=== PATIENT | female | born 1980 ===

== ENCOUNTER 2018-04-26 10:59 | Day surgery (SDC) | payer OTHER ==
[2018-04-26 11:39] VITALS: BMI 31.8
--- NOTE | 2018-04-26 11:42 | PDOC.LDHP ---
Labor and Delivery H&P Chief complaint: contractions HPI: 37 y/o G1 at 39w1d here for contractions. Denies VB, LOF, or decreased FM. ROS neg for HEENT, CV, pulm, GI, , neuro, psych, skin, musculoskeletal, or constitutional symptoms other than mentioned above. OB History Details: First Current complications: none Past Medical History: None Current medications: pre- vitamins Previous surgical history: none Allergies/Adverse Reactions: Allergies Allergy/AdvReac Type Severity Reaction Status Date / Time No Known Allergies Allergy Unverified 04/26/18 11:25 Social history: none - Physical Exam Vital signs reviewed and normal: yes General: NAD, resting Lungs: nonlabored breathing Abdomen: gravid Extremeties: no edema FHT: category 1 (120s, mod variability, + accels, no decels) [place] contractions every: 6-8 mins
[2018-04-26 11:46] VITALS: BP 112/62; TEMP 98.1
--- NOTE | 2018-04-26 14:04 | PDOC.LDHP ---
Labor and Delivery H&P Chief complaint: contractions HPI: 37 yo 39.1 wk by LMP/20.6 wk Sono, Hep B positive. Presents with occasional contractions that started last night. came to hospital for triage. No contractions since arriving at hospital. Denies bleeding, discharge, LOF, or decreased movement. History obtained with use of business services sales representative. Due date: 05/02/18 (39.1) Dating criteria: last menstrual period (c/w 20.6) Grav: 1 Para: 0 Current complications: other (Hep B positive, gestation throbocytopenia) Abnormal US findings: No (posterior placenta ) Past Medical History: Hep B. Current medications: pre-leda vitamins Previous surgical history: none Social history: none - Physical Exam Vital signs reviewed and normal: yes General: NAD, resting Heart: RRR Lungs: nonlabored breathing Abdomen: NTTP Extremeties: no edema FHT: category 1 (baseline 140, moderate variability, accel present, no decell) - Vaginal Exam cm dilated: 3 Effacement: 50% Station: -1 - OB Labs Blood type: A RH: positive Antibody Screen: negative HIV: negative RPR: negative HEPSAg: positive (positive viral load) GBS: negative Urine drug screen: negative Rubella: immune - Assessment False labor. - Plan -: No change in 2 hours. D/C home with labor precautions and instructed to f/u with PCP in 1-2 days for routine care. <Christos Horton - Last Filed: 04/26/18 14:02> <Carmen Alcala - Last Filed: 04/26/18 16:50> Allergies/Adverse Reactions: Allergies Allergy/AdvReac Type Severity Reaction Status Date / Time No Known Allergies Allergy Unverified 04/26/18 11:25 Attending Addendum - Attending Addendum Date/Time: 04/26/18 1642 I personally evaluated the patient and discussed the management with Dr. Horton I agree with the History, Examination, Assessment and Plan documented above with any addition or exceptions noted below- 37 yo female at 39.1 weeks presented c/o ctx this morning. Only irregularly felt. (+) FM. Monitored x2 hours in L&D. No cervical change. Category 1 FHTs. D/c home with labor precautions. <Carmen Alcala - Last Filed: 04/26/18 16:50>
== END 2018-04-26 14:25 | disposition home or self-care (01) ==
LOC: L&D/OP 10:59
PROVIDERS: ATTEND Family Medicine
DX: O47.1 False labor at or after 37 completed weeks of gestation (principal); O46.003 Antepartum hemorrhage with coagulation defect, unspecified, third trimester; D69.6 Thrombocytopenia, unspecified; Z3A.39 39 weeks gestation of pregnancy
CPT/HCPCS: 99283

== ENCOUNTER 2018-04-27 15:00 | Inpatient (IN) | payer MEDICAID, OTHER, SELFPAY ==
[~2018-04-27 15:00] MED LIST: Bupivacaine 0.25% HCL 30 ML VIAL ONE; Lidocaine 2% MPF 10 ML AMP (For Epidural Use) ONE
[2018-04-27 15:29] VITALS: BMI 31.4
--- NOTE | 2018-04-27 16:08 | PDOC.LDHP ---
Labor and Delivery H&P Chief complaint: other (Pelvic Pain, vaginal bleeding) HPI: 37 yo 39.2 wk by LMP/20.6 wk Sono, Hep B positive. Presents with pelvic pain with radiation to the back and associated vaginal bleeding starting at 9am this morning. Per bleeding has been minimal. Denies discharge, LOF, or decreased movement, pt is feeling contractions. Pt is unwilling to offer more details to history and is unwilling at this time to answer questions and be physically examined except for cervical check. Before pt refused monitor FHT visualized at 140bpm. History obtained with use of state federal relations deputy director. Pt presented to triage yesterday and was discharged with false labor diagnosis. ROS: no fevers, no chills Current gestational age (weeks): 39 (39.2) Dating criteria: second trimester ultrasound Grav: 1 Para: 0 Current complications: other (HepB) Abnormal US findings: No (posterior placenta) Current medications: pre- vitamins Previous surgical history: other (unable to obtain) Social history: other (unable to obtain) - Physical Exam General: other (unable to obtain) - Vaginal Exam cm dilated: 10 Effacement: 100% Station: 1+ - OB Labs Blood type: A RH: positive Antibody Screen: negative HIV: negative RPR: negative HEPSAg: unknown (positive viral load) GBS: negative Urine drug screen: negative Rubella: immune - Assessment L&D Assessment: term patient in labor 37yo with PMH of HepB is in active labor, desires epidural -anesthesia consult for epidural -expectant management. - Plan Plan: admit to L&D <Rodrigo Bernard - Last Filed: 04/27/18 16:39> <Carmen Alcala - Last Filed: 04/27/18 17:36> Allergies/Adverse Reactions: Allergies Allergy/AdvReac Type Severity Reaction Status Date / Time No Known Allergies Allergy Verified 04/27/18 15:21 Attending Addendum - Attending Addendum Date/Time: 04/27/18 8830 I personally evaluated the patient and discussed the management with Dr. Bernard I agree with the History, Examination, Assessment and Plan documented above with any addition or exceptions noted below- 37 yo @39.2 weeks with h/o chronic Hep B presented c/o ctx since 9 AM. Denies any LOF. (+) vaginal spotting. Patient initially refusing exam or monitoring. Multiple discussions via state federal relations deputy director phone and patient allowed exam. Afebrile VSS. SVE- AL/C/+1 to +2 ; Category 1 FHT. [place] ctx q3 min. A/P: IUP @ 39.2 weeks in advanced labor- Admit to L&D. 2) Chronic Hep B- plan to give vaccine and immunoglobulin to infant. <Carmen Alcala - Last Filed: 04/27/18 17:36>
[2018-04-27] MEDS ORDERED: Ibuprofen 800 MG TAB PO PRN (16:35)
[2018-04-27] MEDS ORDERED: Promethazine HCl 25 MG/ML VIAL IM PRN (16:35)
[2018-04-27] MEDS ORDERED: NS / Oxytocin 40 units/1000ml 1,000 ML IV PRN (16:35)
[2018-04-27] MEDS ORDERED: Ondansetron HCl/PF 4 MG/2 ML Vial IVP PRN (16:35)
[2018-04-27] MEDS ORDERED: Lidocaine 1% (PF) 30 ML VIAL SC PRN (16:35)
[2018-04-27] MEDS: Lactated Ringer's 1,000 ML IV SCH ×2 (16:40→18:20)
[2018-04-27] MEDS ORDERED: Lidocaine 1% (PF) 30 ML VIAL ONE (16:56)
[2018-04-27 16:59] LABS: Hemoglobin 14.2 g/dL (12.0-16.0); Mean Corpuscular HGB CONC 34.9 g/dL (32.0-36.0); Mean Corpuscular Hemoglobin 34.6 pg (27.0-31.0); Mean Corpuscular Volume 98.9 fL (78.0-98.0); Mean Platelet Volume 11.5 fL (7.4-10.4); Platelet Count 99 thou/uL (130-400); RBC Distribution Width 12.4 % (11.5-14.5)
[2018-04-27] MEDS ORDERED: Bupivacaine 0.75% 13.4 ML, fentaNYL Citrate/PF 400 MCG in Sodium Chloride 0.9% 78.6 ML EPIDURAL SCH (17:15)
[2018-04-27 18:02] LABS: Syphilis Antibody Nonreactive (Nonreactive); Syphilis Antibody Index 0.08 S/CO (<1.00 Non-Reactive)
--- NOTE | 2018-04-27 18:17 | PDOC.LDPN ---
Labor & Delivery Progress Note - Subjective Subjective: comfortable - Objective Vital signs reviewed and normal: yes General: resting Uterine fundus: non tender Dilation: 10 Effacement: 100% Station: 0 FHT: category 1 (130/mod/+accel/early decel) [place] contractions every: q2-4 - Assessment (1) Hepatitis B affecting in third trimester, antepartum Code(s): O98.413 - VIRAL HEPATITIS COMPLICATING , THIRD TRIMESTER; B19.10 - UNSPECIFIED VIRAL HEPATITIS B WITHOUT HEPATIC COMA Current Visit: Yes Status: Acute (2) Current Visit: Yes Status: Acute Plan: continue plan of care -: 37yo at 39.2 by LMP/20.6w sono with PMH of HepB here in active labor 1. sIUP - Comfortable now with epidural - Complete/100/0 - Will allow to labor down - IOB labs: A pos, antibody negative, HIV neg, RPR neg, Rubella immune, Hep B positive, HPv negative, Gc/Chl neg at 28w, a1c 5.9, HIV neg, RPR neg 2. Active Hep B - Last viral load 635 11/2017 - Will notify nursery - Hep B immunization and immunoglobulin within 12 hours of delivery 3. GBS negative
[2018-04-27 20:13] LABS: Hep B Surf Ag Reactive S/CO (NonReactive)
[2018-04-27 21:07] LABS: Actual Bicarbonate (HCO3v) 19 mEq/L (22-28); Base Excess -6.5 mEq/L (-2.0 to +3.0); Base Excess (BEa) -7.7 mEq/L (-2.0 to +3.0)
[2018-04-27] MEDS ORDERED: CEFAZOLIN 1 GM in Sodium Chloride 0.9% 100 ML IVPB SCH (21:30)
--- NOTE | 2018-04-27 21:35 | PDOC.OPDEL ---
OB Operative/Delivery Note Delivery Dr/Surgeon: Belen Delcid MD and Ava Quintanilla MD Assist: Attending: Megan Pearson MD Pre-Delivery Diagnosis: non-reassuring tracing, other (poor maternal effort, AMA, Hepatitis B, thrombocytopenia, term IUP) Weeks gestation: 39 (39.2) Anesthesia: epidural - Findings A Sex: female - 1 min: 4 - 5 min: 9 - Additional Findings/Plan Placenta delivered: manual removal Repaired Obstetrical Laceration: 2nd degree Estimated blood loss: 250 mL Compilations/Other Findings: 2 small R periurethral repaired with figure of 8 and running Post delivery plan: routine recovery <Belen Delcid - Last Filed: 04/27/18 21:33> - Additional Findings/Plan Compilations/Other Findings: I was present for the delivery and participated in the lund events. Please see resident dictation for completeness. ABrayMD <Megan Pearson - Last Filed: 04/27/18 22:03>
[2018-04-27] MEDS ORDERED: Bisacodyl 10 MG SUPP PR PRN (22:55)
[2018-04-27] MEDS ORDERED: Acetaminophen/Codeine 30-300mg Tablet PO PRN ×2 (22:55)
[2018-04-27] MEDS ORDERED: Lanolin Ointment 7 GM TUBE TOP PRN (22:55)
[2018-04-27] MEDS ORDERED: NS / Oxytocin 40 units/1000ml 1,000 ML IV SCH (22:55)
[2018-04-27] MEDS ORDERED: Milk Of Magnesia 30 ML UDCUP PO PRN (22:55)
--- NOTE | 2018-04-28 04:10 | DN-2 ---
DELIVERING PHYSICIAN: Belen Delcid M.D. and Ava Quintanilla M.D. ATTENDING PHYSICIAN: Megan Pearson M.D. PROCEDURE: Vacuum-assisted vaginal delivery. ANESTHESIA: Epidural. ESTIMATED BLOOD LOSS: 250 mL. PREOPERATIVE DIAGNOSES: 1. Term intrauterine in labor. 2. Poor maternal effort. 3. Nonreassuring heart tones. 4. Hepatitis B positive mother. 5. Advanced maternal age. 6. Thrombocytopenia. 5. GBS negative. POSTOPERATIVE DIAGNOSES: 1. Term intrauterine , delivered. 2. Poor maternal effort. 3. Nonreassuring heart tones. 4. Hepatitis B positive mother. 5. Advanced maternal age. 6. Thrombocytopenia. 5. GBS negative. INDICATIONS: A 37-year-old female, G1, P0, presented in active labor. DELIVERY NOTE: This is a 37-year-old female, G1, P0, now P1-0-0-1 at 39.2 weeks who delivered a viab le female at 2037. Following an uneventful antepartum course, a vigorous female was de livered over a midline second-degree laceration with vacuum assist in the occipitoanterior position. Anterior shoulder and the remainder of body is delivered. A nuchal cord was noted and delivered thr ough. The head was held and the cord was clamped and cut and infant was transferred to the warmer. A cord segment was obtained through a cord was clamped and cut and cord blood collected. The vocal c ord avulsed and the placenta was then manually extracted. Fundal massage was performed and the fundu s was firm. The cervix and vagina were inspected and a midline second-degree laceration as well as r ight-sided lateral periurethral lacerations were noted. The midline laceration was repaired in the u sual fashion with 3-0 Vicryl and 2-0 Vicryl with good approximation and hemostasis. The right latera l periurethral lacerations were repaired with 2-0 Vicryl. The went to nursery in good condition for routine care. Apgars were 4 and 9 at one and five minutes respectively. Patient maame rated delivery well and went to after routine recovery and care.
[2018-04-28] MEDS: Ibuprofen 800 MG TAB PO SCH ×3 (04:33→21:55)
[2018-04-28 06:06] LABS: Hemoglobin 11.7 g/dL (12.0-16.0); Mean Corpuscular HGB CONC 35.6 g/dL (32.0-36.0); Mean Corpuscular Hemoglobin 35.4 pg (27.0-31.0); Mean Corpuscular Volume 99.4 fL (78.0-98.0); Mean Platelet Volume 10.7 fL (7.4-10.4); Platelet Count 73 thou/uL (130-400); RBC Distribution Width 12.4 % (11.5-14.5); Red Blood Cell (RBC) Count 3.31 mill/uL (4.20-5.40); White Blood Cell (WBC) Count 12.6 thou/uL (4.8-10.8)
--- NOTE | 2018-04-28 08:23 | PDOC.PP ---
Post Progress Note Post Day #: 1 Subjective: 37yo s/p day 1 with pmh of hepB recovering well from delivery. Reports tolerating PO intake, +BM, +ambulation, and good pain controll. Reports saturating one half pad with blood overnight. Pt has no complaints at this time. Subjective info gathered via [employer] translation services. ROS: no fevers or chills, no sob or cough, no cp or palpitations. PO intake tolerated: yes Flatus: yes Ambulation: yes Vital Signs (12 hours) Temp Pulse Resp BP 04/28/18 08:00 98.3 F 67 18 04/28/18 07:58 98.3 F 67 18 100/61 04/28/18 04:30 98.4 F 75 16 110/57 L 04/28/18 01:20 98.7 F 78 16 119/64 04/28/18 00:10 99.7 F H 79 16 119/66 04/27/18 23:30 98.5 F 70 16 122/63 Weight Weight 83.007 kg - Physical Examination General: NAD Cardiovascular: no m/r/g, RRR Respiratory: clear to auscultation bilaterally Abdominal: + bowel sounds, no distention Skin: no rash Neurological: no gross focal deficits Psychiatric: A&Ox3, normal affect Result Diagrams: 04/28/18 05:40 Additional Labs: Post Labs Blood Type A POSITIVE 04/27/18 16:40 Hep Bs Antigen Reactive S/CO (NonReactive) H 04/27/18 16:40 (1) Normal vaginal delivery Code(s): O80 - ENCOUNTER FOR FULL-TERM UNCOMPLICATED DELIVERY Status: Acute (2) Hepatitis B Status: Acute (3) Thrombocytopenia affecting Code(s): O99.119 - OTH DIS OF BLD/BLD-FORM ORG/IMMUN MECHNSM COMP PREG,UNSP TRI ; D69.6 - THROMBOCYTOPENIA, UNSPECIFIED Status: Acute - Assessment/Plan 37yo s/p with small 2nd degree lac repaired and placenta manually extracted, day 1. Pt has pmh of hepB and was thrombocytopenic at presentation. -Pt doing well, ambulating, eating, +BM, minimal bleeding -continue monitoring HepB -will review charts for antibody/antigen status -f/u outpt. Thrombocytopenia -likely Gestational thrombocytopenia, pt not bleeding significantly -will get hemogram tomorrow AM <Rodrigo Bernard - Last Filed: 04/28/18 08:51> Vital Signs (12 hours) Temp Pulse Resp BP 04/28/18 08:00 98.3 F 67 18 04/28/18 07:58 98.3 F 67 18 100/61 04/28/18 04:30 98.4 F 75 16 110/57 L 04/28/18 01:20 98.7 F 78 16 119/64 04/28/18 00:10 99.7 F H 79 16 119/66 Weight Weight 83.007 kg Result Diagrams: 04/28/18 05:40 Additional Labs: Post Labs Blood Type A POSITIVE 04/27/18 16:40 Hep Bs Antigen Reactive S/CO (NonReactive) H 04/27/18 16:40 <Carmen Alcala - Last Filed: 04/28/18 12:09> Attending Addendum - Attending Addendum Date/Time: 04/28/18 1200 I personally evaluated the patient and discussed the management with Dr. Bernard I agree with the History, Examination, Assessment and Plan documented above with any addition or exceptions noted below- Patient without complaints. Pain well controlled. Tolerating diet. Afebrile VSS. A/P: 1) PPD#1 s/p VAVD- continue routine care. 2) Gestational thrombocytopenia - continue to monitor platelt count. No evidence of bleeding. 3) Chronic Hepatitis B- will need follow-up as outpatient. Will check follow-up viral load and LFTs with AM labs. <Carmen Alcala - Last Filed: 04/28/18 12:09>
[2018-04-28] MEDS ORDERED: Adacel (T-DAP) 0.5 ML VIAL IM ONE (09:00)
[2018-04-28] MEDS: Docusate Calcium (SURFAK) 240 MG CAP PO SCH ×2 (09:02→21:55)
[2018-04-28] MEDS: Prenatal Vitamin 1 TAB PO SCH (09:02)
[2018-04-28] MEDS: Ferrous Sulfate 325 MG TAB PO SCH ×2 (09:02→18:33)
[2018-04-29] MEDS: Ibuprofen 800 MG TAB PO SCH ×3 (05:17→21:14)
[2018-04-29 05:43] LABS: Hemoglobin 10.3 g/dL (12.0-16.0); Platelet Count 77 thou/uL (130-400)
--- NOTE | 2018-04-29 07:12 | PDOC.PP ---
Addendum entered and electronically signed by Rodrigo Bernard MD 04/29/18 10:14 : Disp: Discharge tomorrow pending baby's t-bili. Baby Jose Manuel t-bili came back at 11.5 today, high risk category, and will receive phototherapy and further educate parents on parenting practices. Original Note: Post Progress Note Post Day #: 2 Subjective: 37yo s/p vacuum assisted delivery with PMH of HepB and gestational thrombocytopenia. Pt has no complaints at this time. + ambulation, BMs, PO intake tolerance, pain tolerance. Pt has partially saturated 1 pad in the last 12 hours. ROS: no fevers or chills, no cp or palpitations, no sob or cough, no dysuria. PO intake tolerated: yes Flatus: yes Ambulation: yes Vital Signs (12 hours) Temp Pulse Resp BP 04/28/18 19:44 98.1 F 72 16 114/58 L Weight Weight 83.007 kg - Physical Examination General: NAD Cardiovascular: no m/r/g, RRR Respiratory: clear to auscultation bilaterally, non-labored breathing Abdominal: + bowel sounds, no distention Skin: no rash Neurological: no gross focal deficits Psychiatric: A&Ox3, normal affect Result Diagrams: 04/29/18 05:11 Additional Labs: Post Labs Blood Type A POSITIVE 04/27/18 16:40 Hep Bs Antigen Reactive S/CO (NonReactive) H 04/27/18 16:40 (1) Normal vaginal delivery Code(s): O80 - ENCOUNTER FOR FULL-TERM UNCOMPLICATED DELIVERY Status: Acute (2) Hepatitis B Status: Acute (3) Thrombocytopenia affecting Code(s): O99.119 - OTH DIS OF BLD/BLD-FORM ORG/IMMUN MECHNSM COMP PREG,UNSP TRI ; D69.6 - THROMBOCYTOPENIA, UNSPECIFIED Status: Acute - Assessment/Plan 37yo s/p with small 2nd degree lac repaired and placenta manually extracted, day 1. Pt has pmh of hepB and was thrombocytopenic at presentation. -Pt doing well, ambulating, eating, +BM, minimal bleeding -continue monitoring HepB - + HebBs antigen -f/u outpt. -case mgmt. consult to assist pt in making f/u apt. Thrombocytopenia -likely Gestational thrombocytopenia, pt not bleeding significantly. Platelets 77 (up from 73) -no need for platelet transfusion at this time -continue to monitor symptoms -will repeat H/H and thrombocytopenia in the AM if they stay the night. Disp: discharge pending baby's t-bili and fathers purchase of a car seat. <Rodrigo Bernard - Last Filed: 04/29/18 08:52> Vital Signs (12 hours) Temp Pulse Resp BP 04/29/18 08:35 98.6 F 83 20 98/59 L Weight Weight 83.007 kg Result Diagrams: 04/29/18 05:11 Additional Labs: Post Labs Blood Type A POSITIVE 04/27/18 16:40 Hep Bs Antigen Reactive S/CO (NonReactive) H 04/27/18 16:40 <Carmen Alcala - Last Filed: 04/29/18 10:29> Attending Addendum - Attending Addendum Date/Time: 04/29/18 1025 I personally evaluated the patient and discussed the management with Dr. Bernard I agree with the History, Examination, Assessment and Plan documented above with any addition or exceptions noted below- Patient without complaints. Ambulating and voiding without difficulty. Afebrile VSS. A/P: 1) PPD#2 s/p VAVD - continue routine care; started on phototherapy; continue to encourage and assist with . 2) Chronic Hep B- discussed need for follow-up as outpatient. 3) Thrombocytopenia- stable. <Carmen Alcala - Last Filed: 04/29/18 10:29>
[2018-04-29] MEDS: Docusate Calcium (SURFAK) 240 MG CAP PO SCH ×2 (10:00→21:13)
[2018-04-29] MEDS: Prenatal Vitamin 1 TAB PO SCH (10:00)
[2018-04-29] MEDS: Ferrous Sulfate 325 MG TAB PO SCH ×2 (10:01→18:10)
[2018-04-29 20:32] VITALS: TEMP 98.3
[2018-04-30] MEDS: Ibuprofen 800 MG TAB PO SCH ×2 (05:21→14:20)
--- NOTE | 2018-04-30 07:23 | PDOC.PP ---
Post Progress Note Post Day #: 3 Subjective: Patient states she is doing well this AM. Does endorse some vaginal/cervical pain, especially upon urination. Is also still having vaginal bleeding comparable to her period. Not passing any clots. Had some abdominal cramping overnight that has resovled this AM. Ambulating, voiding and stooling well. Tolerating food and liquids well by mouth, no nausea or vomiting. PO intake tolerated: yes Flatus: yes Ambulation: yes Vital Signs (12 hours) Temp Pulse Resp BP 04/29/18 20:20 98.3 F 80 16 121/64 Weight Weight 83.007 kg - Physical Examination General: NAD Cardiovascular: no m/r/g, RRR Respiratory: clear to auscultation bilaterally, non-labored breathing Abdominal: + bowel sounds, lochia (Bloody discharge equivalent to menstrual blood loss.), no distention, appropriately TTP Extremities: negative homans (B) Perineum: Tenderness to palpation on vaginal inspection. No hematoma noted. Neurological: no gross focal deficits Psychiatric: A&Ox3, normal affect Result Diagrams: 04/29/18 05:11 Additional Labs: Post Labs Blood Type A POSITIVE 04/27/18 16:40 Hep Bs Antigen Reactive S/CO (NonReactive) H 04/27/18 16:40 (1) Normal vaginal delivery Code(s): O80 - ENCOUNTER FOR FULL-TERM UNCOMPLICATED DELIVERY Status: Acute (2) Hepatitis B affecting in third trimester, antepartum Code(s): O98.413 - VIRAL HEPATITIS COMPLICATING , THIRD TRIMESTER; B19.10 - UNSPECIFIED VIRAL HEPATITIS B WITHOUT HEPATIC COMA Status: Acute (3) Hepatitis B Status: Chronic (4) Thrombocytopenia affecting Code(s): O99.119 - OTH DIS OF BLD/BLD-FORM ORG/IMMUN MECHNSM COMP PREG,UNSP TRI ; D69.6 - THROMBOCYTOPENIA, UNSPECIFIED Status: Acute (5) Status: Resolved - Assessment/Plan A&P: 37YO w/ PMH significant for HepB who is day #2 s/p complicated by a small 2nd degree laceration & manual placenta extraction. 1. day #2 s/p : - Plan to go home today. - Instructed to make a follow-up appt at [facility] in 2-4 weeks for a followup. 2. Hepatitis B infection: - Patient aware. - Instructed to make a follow-up appt at [facility] regarding Hepatitis B outpatient followup. 3. Thrombocytopenia: - Platelets trending up. - No need for intervention at this time. - Will instruct to f/u on outpatient basis regarding this. <Mckenzie Fuentes - Last Filed: 04/30/18 10:56> Vital Signs (12 hours) Temp Pulse Resp BP 04/30/18 08:20 98.1 F 82 20 105/64 Weight Weight 83.007 kg Result Diagrams: 04/29/18 05:11 Additional Labs: Post Labs Blood Type A POSITIVE 04/27/18 16:40 Hep Bs Antigen Reactive S/CO (NonReactive) H 04/27/18 16:40 <Carmen Alcala - Last Filed: 04/30/18 19:42> Attending Addendum - Attending Addendum Date/Time: 04/30/181938 I personally evaluated the patient and discussed the management with Dr. Fuentes I agree with the History, Examination, Assessment and Plan documented above with any addition or exceptions noted below- Patient complaining of some pain along perineum. Afebrile VSS A/P: 1) PPD#3 s/p VAVD- plan to d/c home today. <Carmen Alcala - Last Filed: 04/30/18 19:42>
[2018-04-30] MEDS: Prenatal Vitamin 1 TAB PO SCH (09:54)
[2018-04-30] MEDS: Ferrous Sulfate 325 MG TAB PO SCH (09:54)
[2018-04-30] MEDS: Docusate Calcium (SURFAK) 240 MG CAP PO SCH (09:54)
[2018-04-30 11:07] VITALS: BP 105/64
[2018-05-02 17:11] LABS: Hep B Surface AG-Rflx Sendout Confirm. indicated (Negative)
== END 2018-04-30 16:25 | disposition home or self-care (01) | DRG 774 ==
LOC: L&D/OP 15:00 → L&D 16:53 → 3SW 23:26 → 3SE 04-29 21:52
PROVIDERS: ADMIT Family Medicine; ATTEND Family Medicine
PROC: 10D07Z6 Extraction of Products of Conception, Vacuum, Via Natural or Artificial Opening (ICD-10-PCS; principal; 2018-04-27)
DX: O76 Abnormality in fetal heart rate and rhythm complicating labor and delivery (principal); O98.42 Viral hepatitis complicating childbirth; O99.12 Other diseases of the blood and blood-forming organs and certain disorders involving the immune mechanism complicating childbirth; B18.1 Chronic viral hepatitis B without delta-agent; O75.81 Maternal exhaustion complicating labor and delivery; D69.6 Thrombocytopenia, unspecified; Z3A.39 39 weeks gestation of pregnancy; Z37.0 Single live birth
CPT/HCPCS: 36415; 51702; 82805; 85014; 85018; 85027; 85049; 86780; 86850; 86900; 86901; 87340; 88307; 90715; 99285; A4216; J0690; J2001; J3010; J7050; S0020